=== PATIENT | female | born 1955 | race Two or more races ===

== ENCOUNTER 2023-12-19 16:54 | Emergency (ER) | payer OTHER ==
[~2023-12-19] VITALS: Ht 162.6 cm; Wt 66.7 kg
[2023-12-19] MEDS ORDERED: SYNTHROID75 MCG PO (17:16)
[2023-12-19] MEDS ORDERED: SYNTHROID88 MCG PO (17:17)
[2023-12-19] MEDS ORDERED: ATORVASTATIN CA40 MG PO (17:17)
[2023-12-19] MEDS ORDERED: 0.9 % SODIUM CHLORIDE 1,000 ML IV ONE (17:45)
[2023-12-19] MEDS ORDERED: ONDANSETRON HCL 2 MG/ML VIAL IV ONE (17:45)
[2023-12-19] MEDS ORDERED: KETOROLAC TROMETHAMINE 60 MG VIAL IM ONE (17:45)
[2023-12-19] MEDS ORDERED: FAMOtidine 10 MG/ML (4ML VIAL) IV ONE (17:45)
[2023-12-19 18:17] LABS: HEMATOCRIT 42.2 % (36.0-45.00); HEMOGLOBIN 14.4 g/dL (12.0-15.00); MEAN CELL VOLUME 94.7 fL (80.00-100.00); MEAN CORPUSCULAR HEMOGLOBIN 32.3 pg (27.00-32.0); MEAN CORPUSCULAR HGB CONC 34.1 g/dl (32.0-36.0); PLATELET COUNT 227 K/uL (150-450); RED BLOOD COUNT 4.46 M/uL (4.00-6.00); RED CELL DISTRIBUTION WIDTH 14.5 % (11.5-14.5)
[2023-12-19 18:33] LABS: INR 1.07; PARTIAL THROMBOPLASTIN TIME 23.2 SECONDS (22.0-34.0); PROTHROMBIN TIME 11.6 SECONDS (9.0-11.5)
[2023-12-19 18:39] LABS: ALBUMIN 4.1 gm/dL (3.4-5.0); BILIRUBIN TOTAL 1.84 mg/dL (0.3-1.2); CALCIUM 9.6 mg/dL (8.5-10.1); CREATININE SERUM 0.81 mg/dL (0.55-1.02); GFR 69.9; POTASSIUM 3.47 mEq/L (3.5-5.1); TOTAL PROTEIN 8.1 gm/dL (6.4-8.2)
[2023-12-19 20:26] LABS: URINE APPEARANCE Clear; URINE BILIRRUBIN Negative (NEGATIVE); URINE BLOOD Negative; URINE COLOR Yellow; URINE GLUCOSE Negative (NEGATIVE); URINE KETONE Negative (NEGATIVE); URINE LEUKOCYTE Negative; URINE NITRATE Negative; URINE PROTEIN Negative (NEGATIVE)
[2023-12-19 20:30] LABS: URINE EPITHELIAL CELLS 9.8 uL (0.0-38.8); URINE WBC 14.2 uL (0.0-23.2)
[2023-12-19] MEDS ORDERED: BUTALB/ACETAMINOPHEN/CAFFEINE 1 TAB TABLET PO ONE (20:30)
[2023-12-19 20:31] LABS: URINE RBC 1.8 uL (0.0-20.8)
[2023-12-19 21:38] LABS: AMYLASE 70 U/L (25-115); LIPASE 52 U/L (13-75)
== END 2023-12-19 22:13 | disposition designated cancer center or children's hospital (05) ==
LOC: ER 16:56
PROVIDERS: General Practice
DX: K80.50 Calculus of bile duct without cholangitis or cholecystitis without obstruction (principal); K29.70 Gastritis, unspecified, without bleeding; E03.8 Other specified hypothyroidism
CPT/HCPCS: 36415; 74177; 93005; 96365; 96366; 99284; J1885; J2405; J3490; J7030; Q9965